=== PATIENT | female | born 1995 | race Caucasian/White ===

== ENCOUNTER 2017-07-27 12:12 | Emergency (ER) | payer BC, OTHER ==
[~2017-07-27] VITALS: Ht 160 cm; Wt 63.0 kg
[2017-07-27 12:44] VITALS: Ht 160 cm; Wt 63.0 kg
[2017-07-27] MEDS ORDERED: IBUP-1542 PO (14:15)
[2017-07-27] MEDS ORDERED: CYCL5TAB PO (14:16)
[2017-07-27] MEDS ORDERED: SKELAXIN400 MG PO (14:23)
--- NOTE | 2017-07-27 14:46 | ERD ---
ER Documentation Chief Complaint Date/Time DATE: 07/27/17 TIME: 14:43 Chief Complaint CHRONIC BACK PAIN WITH LEFT LEG SYMPTOMS HPI 22-year-old female presents with right-sided low back pain radiating to the left leg for the past 2 days. She states "I threw my back" and she reports having taken Skelaxin for this in the past. She reports pain that is achy, worse with movement, better at rest. She denies trauma. She denies saddle anesthesia loss of bowel bladder function. ROS All systems reviewed and are negative except as per history of present illness. Medications Home Meds Active Scripts Metaxalone* (Skelaxin*) 400 Mg Tablet, 400 MG PO QID, #30 TAB Prov:LEANN PLASCENCIA PA-C 07/27/17 Ibuprofen* (Motrin*) 600 Mg Tab, 600 MG PO Q6, #30 TAB Prov:LEANN PLASCENCIA PA-C 07/27/17 Allergies Allergies: Coded Allergies: No Known Allergy (Unverified , 07/27/17) PMhx/Soc Hx Alcohol Use: No Hx Substance Use: No Hx Tobacco Use: No Smoking Status: Never smoker Physical Exam Vitals Vital Signs Date Time Temp Pulse Resp B/P Pulse Ox O2 Delivery O2 Flow Rate FiO2 07/27/17 12:44 98.3 79 18 100 Physical Exam General: Well-developed, well-nourished. The patient appears in no acute distress. HEENT: Head is normocephalic, atraumatic. No scleral icterus. Pupils are equal , round, and reactive. Oral mucous membranes are moist. No pharyngeal erythema. Neck: Supple. Nontender. Lungs: Clear to auscultation. Normal air movement. Heart: Regular rate and rhythm. S1 and S2 are normal. No murmurs, gallops, or rubs. Abdomen: Soft, nontender, nondistended. Bowel sounds are normoactive. Back: There is no midline tenderness, right lateral back is tender to palpation in the lumbar region. Extremities: No clubbing or cyanosis. Normal pulses. Moving extremities x 4. No weakness. Neurologic: Alert and oriented 3. No focal deficits. Skin: Normal turgor. No rash or lesions. Procedures/MDM 22 year old female comes in with right sided low back pain, consistent with a lumbar strain. No signs of cauda equina, fracture, kidney stones pyelonephritis , epidural abscess. Departure Diagnosis: Primary Impression: Back pain Condition: Good Patient Instructions: Back Pain (Acute Or Chronic) Additional Instructions: Call your primary care doctor TOMORROW for an appointment during the next 1-2 days.See the doctor sooner or return here if your condition worsens before your appointment time. LEANN PLASCENCIA PA-C Jul 27, 2017 14:46
== END 2017-07-27 14:38 | disposition home or self-care (01) ==
LOC: FTE 12:12
DX: M54.5 Low back pain (principal)
CPT/HCPCS: 99283

== ENCOUNTER 2018-08-20 23:02 | Emergency (ER) | END 2018-08-21 02:30 | disposition home or self-care (01) ==